=== PATIENT | female | born 1990 | race Caucasian/White ===

== ENCOUNTER 2024-05-06 20:44 | Emergency (ER) | payer OTHER ==
[~2024-05-06] VITALS: Ht 165.1 cm; Wt 60.0 kg
[2024-05-06 20:48] VITALS: TEMP 97.4; O2SAT 98
[2024-05-06] MEDS: ACETAMINOPHEN 325MG TABLET PO ONE (21:45)
[2024-05-06] MEDS ORDERED: TOPUD PO (22:33)
[2024-05-07 00:10] VITALS: BP 131/85; PULSE 78; RESP 16
== END 2024-05-07 00:14 | disposition home or self-care (01) ==
LOC: ER 20:44
DX: M79.602 Pain in left arm (principal); H53.2 Diplopia; Z88.0 Allergy status to penicillin
CPT/HCPCS: 73090; 99284